=== PATIENT | male | born 1985 | race Caucasian/White ===

== ENCOUNTER 2023-02-11 17:52 | Emergency (ER) | payer BC ==
[2023-02-11] MEDS ORDERED: Lidocaine 1% 5 ML VIAL INJECT STA ×2 (19:49→19:52)
[2023-02-11] MEDS ORDERED: Diphtheria,Pertussis(Acell),Tetanus Vaccine 0.5 ML Syringe IM ONE (19:49)
[2023-02-11] MEDS ORDERED: Clindamycin HCl 150 MG Cap PO STA (20:56)
== END 2023-02-11 21:55 | disposition home or self-care (01) ==
LOC: MERGE 17:52 → MW.ED 17:52
DX: S71.111A Laceration without foreign body, right thigh, initial encounter (principal); Z88.0 Allergy status to penicillin; Z23 Encounter for immunization; W26.8XXA Contact with other sharp object(s), not elsewhere classified, initial encounter
CPT/HCPCS: 12002; 90471; 90715; 99283; A9270; J3490